=== PATIENT | female | born 1940 | race Native Hawaiian/Other Pacific Islander ===

== ENCOUNTER 2021-11-27 07:38 | Outpatient (CLI) | payer OTHER | END 2021-11-27 19:01 | disposition home or self-care (01) | LOC: NM 07:38 | PROVIDERS: ATTEND Internal Medicine Cardiovascular Disease | DX: R93.1 Abnormal findings on diagnostic imaging of heart and coronary circulation (principal); R06.02 Shortness of breath; R53.1 Weakness | CPT/HCPCS: A9500 ==

== ENCOUNTER 2021-12-26 14:20 | Outpatient (CLI) | payer OTHER | END 2021-12-26 20:29 | disposition home or self-care (01) | LOC: RESP 14:20 | PROVIDERS: ATTEND Internal Medicine Cardiovascular Disease | DX: I10 Essential (primary) hypertension (principal) ==